=== PATIENT | male | born 1975 | race Caucasian/White ===

== ENCOUNTER 2018-05-19 12:18 | Emergency (ER) | payer OTHER ==
[~2018-05-19] VITALS: Ht 182.9 cm; Wt 80.7 kg
[~2018-05-19 12:18] MED LIST: HYDROCODONE-AP1 EAC6 PO; IBUPROFEN 200200 M1 PO; MIRALAX17 GM PO; NOHOMEMEDICATIONS; ONDANSETRON HCL4 M2 PO; PERCOCET 5-3251 EACH PO; ZANTAC 150MG T150 MG PO
[2018-05-19] MEDS ORDERED: CLEOCIN HCL150 MG PO (12:50)
[2018-05-19] MEDS ORDERED: ACETAMINOPHEN-1 EAC1 PO (12:50)
[2018-05-19 13:15] VITALS: BP 132/93
== END 2018-05-19 13:22 | disposition home or self-care (01) ==
LOC: M.ERS 12:18
DX: K04.7 Periapical abscess without sinus (principal)